=== PATIENT | male | born 1980 | race Caucasian/White ===

== ENCOUNTER 2016-12-28 22:56 | Emergency (ER) | payer SELFPAY ==
[~2016-12-28] VITALS: Ht 175.3 cm; Wt 94.5 kg
[~2016-12-28 22:56] MED LIST: AMOXICILLIN 8751 TAB PO; NORCO 325 MG-51 TAB PO
[2016-12-28 23:00] VITALS: TEMP 97.8
[2016-12-28] MEDS ORDERED: PROAIR HFA0.09 MG/AC (23:00)
[2016-12-28 23:34] LABS: BASO % 0.6 % (0.0-2.0); EOS # 0.3 (0.0-0.7); EOS % 4.2 % (0-4.0); GRAN # 2.3 (1.4-6.5); HEMATOCRIT 46.7 % (42.0-52.0); LYMPH # 3.8 (1.2-3.4); LYMPH % 55.5 % (20.0-51.0); MEAN CELL VOLUME 86 fl (80.0-100.0); MEAN CORPUSCULAR HEMOGLOBIN 31 pg (27.0-31.0); MEAN CORPUSCULAR HGB CONC 36 g/dl (33.0-37.0); MEAN PLATELET VOLUME 10.7 fl (7.4-10.4); MONO # 0.4 (0.1-0.6); MONO % 5.4 % (1.7-9.3); PLATELET COUNT 205 K/mm3 (130-400); RED BLOOD COUNT 5.44 M/mm3 (4.20-5.60); REDCELL DISTRIBUTION WIDTH-CV 12.1 % (11.5-14.5); WHITE BLOOD COUNT 6.9 K/mm3 (4.8-10.8)
[2016-12-28 23:43] LABS: ANION GAP 10 mmol/L (7-16); BLOOD UREA NITROGEN 15 mg/dL (9-20); CALCIUM 9.6 mg/dL (8.4-10.2); CARBON DIOXIDE 26 mmol/L (22-30); CHLORIDE 103 mmol/L (98-107); CREATININE, serum 1.05 mg/dL (0.66-1.25); GLUCOSE 95 mg/dL (74-106); POTASSIUM 3.8 mmol/L (3.4-5.0); SODIUM 139 mmol/L (137-145)
[2016-12-29 00:06] LABS: TROPONIN-I < 0.012 ng/mL (0.000-0.034)
[2016-12-29] MEDS ORDERED: PREDNISONE20 MG PO (00:07)
[2016-12-29 00:16] VITALS: BP 155/96; PULSE 80
[2016-12-29 09:58] LABS: B-TYPE NATRIURETIC PEPTIDE <11 pg/mL (0-125)
== END 2016-12-29 01:04 | disposition home or self-care (01) ==
LOC: COL.ER 22:56
PROVIDERS: Emergency Medicine
DX: J06.9 Acute upper respiratory infection, unspecified (principal); B34.9 Viral infection, unspecified; J98.9 Respiratory disorder, unspecified; Z79.02 Long term (current) use of antithrombotics/antiplatelets
CPT/HCPCS: J7512; J8540

== ENCOUNTER 2017-05-04 21:18 | Emergency (ER) | payer SELFPAY ==
[~2017-05-04] VITALS: Ht 172.7 cm; Wt 92.8 kg
[~2017-05-04 21:18] MED LIST changes: +PREDNISONE20 MG PO; +PROAIR HFA0.09 MG/AC
[2017-05-04 21:21] VITALS: BP 146/86; TEMP 98.4
[2017-05-04 22:08] VITALS: PULSE 93
== END 2017-05-04 22:08 | disposition home or self-care (01) ==
LOC: COL.ER 21:18
DX: K60.2 Anal fissure, unspecified (principal)